=== PATIENT | female | born 1990 | race Two or more races ===

== ENCOUNTER 2024-01-30 14:28 | Emergency (ER) | payer OTHER ==
[~2024-01-30] VITALS: Ht 165.1 cm; Wt 143.8 kg
[2024-01-30 16:40] LABS: HEMOGLOBIN 12.4 g/dL (12.0-15.00); MEAN CORPUSCULAR HEMOGLOBIN 30.7 pg (27.00-32.0); MEAN CORPUSCULAR HGB CONC 34.6 g/dl (32.0-36.0); PLATELET COUNT 334 K/uL (150-450); RED BLOOD COUNT 4.04 M/uL (4.00-6.00); RED CELL DISTRIBUTION WIDTH 12.8 % (11.5-14.5)
== END 2024-01-30 18:41 | disposition home or self-care (01) ==
LOC: ER 14:29
PROVIDERS: General Practice
DX: O20.9 Hemorrhage in early pregnancy, unspecified (principal); Z3A.13 13 weeks gestation of pregnancy; Z88.6 Allergy status to analgesic agent

== ENCOUNTER 2024-02-22 09:48 | Outpatient (CLI) | payer OTHER | END 2024-02-22 09:51 | disposition home or self-care (01) | LOC: PRENATAL 09:48 | PROVIDERS: ATTEND Obstetrics & Gynecology Maternal & Fetal Medicine | DX: O26.849 Uterine size-date discrepancy, unspecified trimester (principal); O99.210 Obesity complicating pregnancy, unspecified trimester; O28.1 Abnormal biochemical finding on antenatal screening of mother; Z3A.16 16 weeks gestation of pregnancy ==

== ENCOUNTER 2024-03-21 11:11 | Outpatient (CLI) | payer OTHER | END 2024-03-21 11:20 | disposition home or self-care (01) | LOC: PRENATAL 11:11 | PROVIDERS: ATTEND Obstetrics & Gynecology Maternal & Fetal Medicine | DX: O44.00 Complete placenta previa NOS or without hemorrhage, unspecified trimester (principal); O99.210 Obesity complicating pregnancy, unspecified trimester; Z3A.21 21 weeks gestation of pregnancy ==

== ENCOUNTER 2024-05-12 12:06 | Outpatient (CLI) | payer OTHER ==
[~2024-05-12] VITALS: Ht 170.2 cm; Wt 141.5 kg
[2024-05-12 11:25] VITALS: BP 100/78; O2SAT 100
[2024-05-12] MEDS ORDERED: RINGERS SOLUTION,LACTATED 1,000 ML IV SCH (12:15)
[2024-05-12] MEDS ORDERED: PRENATAL 19 TA1 EAC2 PO (12:57)
[2024-05-12 13:00] LABS: HEMATOCRIT 35.8 % (36.0-45.00); HEMOGLOBIN 12.1 g/dL (12.0-15.00); MEAN CELL VOLUME 88.2 fL (80.00-100.00); MEAN CORPUSCULAR HEMOGLOBIN 29.7 pg (27.00-32.0); MEAN CORPUSCULAR HGB CONC 33.7 g/dl (32.0-36.0); PLATELET COUNT 361 K/uL (150-450); RED BLOOD COUNT 4.06 M/uL (4.00-6.00); RED CELL DISTRIBUTION WIDTH 13.3 % (11.5-14.5)
[2024-05-12] MEDS ORDERED: FAMOTIDINE/PF 20 MG/2 ML VIAL IV PUSH NR (13:00)
[2024-05-12 13:03] LABS: PH,URINE 5.5 (5.0-8.0); URINE APPEARANCE Cloudy; URINE BILIRRUBIN Small (NEGATIVE); URINE BLOOD Trace; URINE COLOR Dark Yellow; URINE GLUCOSE Negative (NEGATIVE); URINE LEUKOCYTE Small; URINE NITRATE Negative; URINE PROTEIN 30 (NEGATIVE)
[2024-05-12 13:06] LABS: URINE BACTERIA 1263.7 uL (0.0-1933); URINE CAST 8.24 uL (0.0-1.40); URINE EPITHELIAL CELLS 49.4 uL (0.0-38.8); URINE RBC 41.5 uL (0.0-20.8); URINE WBC 92.7 uL (0.0-23.2)
[2024-05-12 13:10] VITALS: BP 101/61; O2SAT 100
[2024-05-12 13:13] LABS: COCAINE NEGATIVE (NEGATIVE); METHADONE NEGATIVE (NEGATIVE); OPIATES NEGATIVE (NEGATIVE); THC ( Cannabinoids) NEGATIVE (NEGATIVE)
[2024-05-12 13:26] LABS: INR 1.02; PARTIAL THROMBOPLASTIN TIME 27.9 SECONDS (22.0-34.0); PROTHROMBIN TIME 11.1 SECONDS (9.0-11.5)
[2024-05-12 13:45] LABS: ALBUMIN 2.8 gm/dL (3.4-5.0); BILIRUBIN TOTAL 0.29 mg/dL (0.3-1.2); CALCIUM 9.4 mg/dL (8.5-10.1); CREATININE SERUM 0.47 mg/dL (0.55-1.02); GFR 153.56; GLOBULINA 3.9 G/DL (2.4-3.5); POTASSIUM 4.22 mEq/L (3.5-5.1); TOTAL PROTEIN 6.7 gm/dL (6.4-8.2)
[2024-05-12 13:52] LABS: URINE KETONE 40 (NEGATIVE)
[2024-05-12 13:53] LABS: URINE MUCUS HEAVY
[2024-05-12 13:55] LABS: URINE CRYSTALS FEW /HPF
[2024-05-12 15:52] VITALS: BP 107/66
[2024-05-12] MEDS ORDERED: ONDANSETRON HCL 2 MG/ML VIAL IV NR (16:00)
[2024-05-12 19:02] VITALS: BP 112/87
[2024-05-12] MEDS ORDERED: MEPERIDINE HCL/PF 50 MG/ML VIAL IV PRN (19:30)
[2024-05-12] MEDS ORDERED: PROMETHAZINE HCL 25 MG/ML AMPUL IV PRN (19:30)
[2024-05-12 23:20] VITALS: BP 93/60
[2024-05-13 04:00] VITALS: BP 121/52
[2024-05-13] MEDS ORDERED: PEPCID AC20 MG PO (06:33)
[2024-05-13 07:20] VITALS: BP 101/70
[2024-05-13 08:41] VITALS: BP 101/70
== END 2024-05-13 09:59 | disposition home or self-care (01) ==
LOC: OBS/DEL 12:06
PROVIDERS: ATTEND Specialist
DX: O99.613 Diseases of the digestive system complicating pregnancy, third trimester (principal); E66.01 Morbid (severe) obesity due to excess calories; O26.849 Uterine size-date discrepancy, unspecified trimester; O36.8199 Decreased fetal movements, unspecified trimester, other fetus; O60.00 Preterm labor without delivery, unspecified trimester; O26.899 Other specified pregnancy related conditions, unspecified trimester; Z3A.29 29 weeks gestation of pregnancy

== ENCOUNTER 2024-07-02 11:15 | Outpatient (CLI) | payer OTHER ==
[~2024-07-02 11:15] MED LIST: PEPCID AC20 MG PO; PRENATAL 19 TA1 EAC2 PO
== END 2024-07-02 11:16 | disposition home or self-care (01) ==
LOC: PRENATAL 11:15
PROVIDERS: ATTEND Obstetrics & Gynecology Maternal & Fetal Medicine
DX: O26.849 Uterine size-date discrepancy, unspecified trimester (principal); O36.8199 Decreased fetal movements, unspecified trimester, other fetus; O99.210 Obesity complicating pregnancy, unspecified trimester; O28.5 Abnormal chromosomal and genetic finding on antenatal screening of mother; O24.419 Gestational diabetes mellitus in pregnancy, unspecified control; Z3A.36 36 weeks gestation of pregnancy

== ENCOUNTER 2024-07-08 17:41 | Outpatient (CLI) | payer OTHER ==
[~2024-07-08] VITALS: Ht 167.6 cm; Wt 145.1 kg
[2024-07-08 16:40] VITALS: BP 104/70
[2024-07-08 17:50] VITALS: BP 104/70
[2024-07-08] MEDS ORDERED: RINGERS SOLUTION,LACTATED 1,000 ML IV SCH (18:00)
[2024-07-08 18:45] LABS: URINE APPEARANCE Clear; URINE BILIRRUBIN Negative (NEGATIVE); URINE BLOOD Trace; URINE COLOR Yellow; URINE GLUCOSE Negative (NEGATIVE); URINE KETONE Negative (NEGATIVE); URINE LEUKOCYTE Small; URINE NITRATE Negative; URINE PROTEIN Trace (NEGATIVE)
[2024-07-08 18:46] LABS: HEMOGLOBIN 12.2 g/dL (12.0-15.00); MEAN CELL VOLUME 86.1 fL (80.00-100.00); MEAN CORPUSCULAR HEMOGLOBIN 29.2 pg (27.00-32.0); MEAN CORPUSCULAR HGB CONC 33.9 g/dl (32.0-36.0); PLATELET COUNT 323 K/uL (150-450); RED BLOOD COUNT 4.18 M/uL (4.00-6.00); RED CELL DISTRIBUTION WIDTH 14.5 % (11.5-14.5)
[2024-07-08 18:49] LABS: URINE BACTERIA 2395.2 uL (0.0-1933); URINE EPITHELIAL CELLS 45.7 uL (0.0-38.8); URINE RBC 4.7 uL (0.0-20.8); URINE WBC 133.2 uL (0.0-23.2)
[2024-07-08 19:12] LABS: URINE CAST 0.14 uL (0.0-1.40)
[2024-07-08 19:24] LABS: INR 0.98; PARTIAL THROMBOPLASTIN TIME 26.5 SECONDS (22.0-34.0); PROTHROMBIN TIME 10.7 SECONDS (9.0-11.5)
[2024-07-08 19:30] LABS: ALBUMIN 2.6 gm/dL (3.4-5.0); BILIRUBIN TOTAL 0.23 mg/dL (0.3-1.2); CALCIUM 9.3 mg/dL (8.5-10.1); CREATININE SERUM 0.46 mg/dL (0.55-1.02); GFR 157.42; GLOBULINA 3.5 G/DL (2.4-3.5); POTASSIUM 4.47 mEq/L (3.5-5.1); TOTAL PROTEIN 6.1 gm/dL (6.4-8.2)
[2024-07-08 20:09] VITALS: BP 96/64
[2024-07-08 23:38] VITALS: BP 122/73
[2024-07-09] MEDS ORDERED: PROMETHAZINE HCL 25 MG/ML AMPUL IV ONE (04:30)
[2024-07-09] MEDS ORDERED: MEPERIDINE HCL/PF 50 MG/ML VIAL IV ONE (04:30)
[2024-07-09 06:18] VITALS: BP 100/65; O2SAT 99
[2024-07-09] MEDS ORDERED: CEFAZOLIN SODIUM 1,000 MG VIAL IV ONE (07:45)
[2024-07-09] MEDS ORDERED: CEFAZOLIN SODIUM 1,000 MG VIAL IV SCH (08:00)
[2024-07-09] MEDS ORDERED: AMPICILLIN SODIUM 2,000 MG VIAL IV ONE (10:15)
[2024-07-09 11:55] VITALS: BP 82/60; O2SAT 98
[2024-07-09] MEDS ORDERED: AMPICILLIN TRI500 MG PO (12:59)
[2024-07-09] MEDS ORDERED: AMPICILLIN SODIUM 1,000 MG VIAL IV SCH ×2 (13:00→16:00)
[2024-07-09 13:52] VITALS: BP 90/60
== END 2024-07-09 13:52 | disposition home or self-care (01) ==
LOC: OBS/DEL 17:41
PROVIDERS: ATTEND Specialist
DX: O26.893 Other specified pregnancy related conditions, third trimester (principal); O23.43 Unspecified infection of urinary tract in pregnancy, third trimester; N39.0 Urinary tract infection, site not specified; Z3A.36 36 weeks gestation of pregnancy

== ENCOUNTER 2024-07-25 12:02 | Inpatient (IN) | payer OTHER ==
[~2024-07-25] VITALS: Ht 162.6 cm; Wt 146.1 kg
[~2024-07-25 12:02] MED LIST changes: +AMPICILLIN TRI500 MG PO
[2024-07-25 12:51] LABS: HEMATOCRIT 38.5 % (36.0-45.00); MEAN CELL VOLUME 86.2 fL (80.00-100.00); MEAN CORPUSCULAR HEMOGLOBIN 29.1 pg (27.00-32.0); MEAN CORPUSCULAR HGB CONC 33.7 g/dl (32.0-36.0); PLATELET COUNT 352 K/uL (150-450); RED BLOOD COUNT 4.47 M/uL (4.00-6.00); RED CELL DISTRIBUTION WIDTH 15.1 % (11.5-14.5)
[2024-07-25 12:51] LABS: PH,URINE 5.5 (5.0-8.0); URINE APPEARANCE Cloudy; URINE BILIRRUBIN Negative (NEGATIVE); URINE COLOR Yellow; URINE GLUCOSE Negative (NEGATIVE); URINE KETONE Negative (NEGATIVE); URINE LEUKOCYTE Large; URINE NITRATE Negative; URINE PROTEIN Negative (NEGATIVE); URINE UROBILINOGEN 0.2 E.U./dl
[2024-07-25 12:55] LABS: URINE BACTERIA 3616.7 uL (0.0-1933); URINE EPITHELIAL CELLS 43.5 uL (0.0-38.8); URINE RBC 18.5 uL (0.0-20.8); URINE WBC 645.3 uL (0.0-23.2)
[2024-07-25 13:12] LABS: INR 0.99; PARTIAL THROMBOPLASTIN TIME 27.3 SECONDS (22.0-34.0)
[2024-07-25 13:13] LABS: URINE CAST 0.58 uL (0.0-1.40)
[2024-07-25 13:14] LABS: URINE BLOOD TRACE
[2024-07-25 13:21] LABS: PROTHROMBIN TIME 10.8 SECONDS (9.0-11.5)
[2024-07-25 13:27] LABS: ALBUMIN 2.8 gm/dL (3.4-5.0); BILIRUBIN TOTAL 0.35 mg/dL (0.3-1.2); CALCIUM 9.9 mg/dL (8.5-10.1); CREATININE SERUM 0.45 mg/dL (0.55-1.02); GFR 161.47; POTASSIUM 4.54 mEq/L (3.5-5.1); TOTAL PROTEIN 6.8 gm/dL (6.4-8.2)
[2024-07-29 00:15] VITALS: BP 102/67
[2024-07-29 00:18] VITALS: BP 102/67
[2024-07-29] MEDS ORDERED: CEFAZOLIN SODIUM 1,000 MG VIAL IV SCH ×2 (01:00→14:00)
[2024-07-29] MEDS ORDERED: RINGERS SOLUTION,LACTATED 1,000 ML IV SCH (01:00)
[2024-07-29] MEDS ORDERED: CEFAZOLIN SODIUM 1,000 MG VIAL ONE (01:01)
[2024-07-29 03:40] VITALS: BP 102/58; BP 94/66
[2024-07-29 06:14] VITALS: BP 116/82; O2SAT 98
[2024-07-29] MEDS ORDERED: OXYTOCIN 10 UNITS/ML VIAL ONE (06:22)
[2024-07-29] MEDS ORDERED: ERYTHROMYCIN BASE OPHT 1GM EACH TUBE OP ONE (06:22)
[2024-07-29] MEDS ORDERED: PROMETHAZINE HCL 50 MG/ML AMPUL IM PRN (08:30)
[2024-07-29] MEDS ORDERED: MEPERIDINE HCL/PF 50 MG/ML VIAL IM PRN (08:30)
[2024-07-29] MEDS ORDERED: MORPHINE SULFATE 4 MG/ML VIAL IV ONE (09:50)
[2024-07-29 10:46] VITALS: BP 119/77
[2024-07-29 15:30] VITALS: BP 119/75
[2024-07-30 01:24] VITALS: BP 116/71
[2024-07-30 02:51] LABS: HEMATOCRIT 35.3 % (36.0-45.00); HEMOGLOBIN 11.8 g/dL (12.0-15.00); MEAN CELL VOLUME 85.9 fL (80.00-100.00); MEAN CORPUSCULAR HEMOGLOBIN 28.7 pg (27.00-32.0); MEAN CORPUSCULAR HGB CONC 33.4 g/dl (32.0-36.0); PLATELET COUNT 277 K/uL (150-450); RED BLOOD COUNT 4.11 M/uL (4.00-6.00); RED CELL DISTRIBUTION WIDTH 15.4 % (11.5-14.5)
[2024-07-30] MEDS ORDERED: OxyCODONE HCL/APAP UD (PERCOCET) PO PRN (07:15)
[2024-07-30] MEDS ORDERED: ACETAMINOPHEN 500 MG GEL..CAP PO PRN (07:15)
[2024-07-30 08:12] VITALS: BP 102/69
[2024-07-30] MEDS ORDERED: SIMETHICONE 125 MG CAPSULE PO SCH (14:17)
[2024-07-31 00:35] VITALS: BP 90/60
[2024-07-31] MEDS ORDERED: PERCOCET 5-3251 EACH PO (07:40)
[2024-07-31] MEDS ORDERED: GAS RELIEF125 MG PO (07:40)
[2024-07-31 08:22] VITALS: BP 108/73
== END 2024-07-31 13:26 | disposition home or self-care (01) | DRG 788 ==
LOC: LDR 07-29 00:52 → OB/GYN 07-29 00:52 → O/R 07-29 07:57 → OB/GYN 07-29 08:44
PROVIDERS: ADMIT Specialist; ATTEND Specialist
PROC: 4A1HXCZ Monitoring of Products of Conception, Cardiac Rate, External Approach (ICD-10-PCS; 2024-07-29)
PROC: 10D00Z1 Extraction of Products of Conception, Low, Open Approach (ICD-10-PCS; principal; 2024-07-29 07:00)
DX: O33.5XX0 Maternal care for disproportion due to unusually large fetus, not applicable or unspecified (principal); O36.63X0 Maternal care for excessive fetal growth, third trimester, not applicable or unspecified; O99.214 Obesity complicating childbirth; E66.01 Morbid (severe) obesity due to excess calories; Z3A.39 39 weeks gestation of pregnancy; Z37.0 Single live birth; Z20.822 Contact with and (suspected) exposure to COVID-19